=== PATIENT | male | born 1945 | race Caucasian/White ===

== ENCOUNTER 2018-02-05 20:19 | Inpatient (IN) | payer MEDICARE ==
[2018-02-05 21:54] LABS: CKMB 1.4 ng/mL (0-6.6); Troponin I 0.013 ng/mL (< 0.028)
--- NOTE | 2018-02-05 22:05 | RAD ---
PA AND LATERAL CHEST X-RAY: 02/05/2018 HISTORY: Hypokalemia. COMPARISON: 04/05/2013 FINDINGS: The cardiac silhouette and pulmonary vasculature are within normal limits. The lungs are clear. Vas cular calcifications are seen in the thoracic aorta. There has been no interval change from the prio r exam. IMPRESSION: No acute cardiopulmonary process. POS: [facility]
[2018-02-05 22:17] LABS: Anion Gap 11 mmol/L (10-20); BUN (Urea Nitrogen) 25 mg/dL (8.4-25.7); Calc. Creatinine Clearance 0 mL/min (70-130); Calcium 9.1 mg/dL (7.8-10.44); Carbon Dioxide 29 mmol/L (23-31); Chloride 97 mmol/L (98-107); Estimated GFR-MDRD 31; Sodium 134 mmol/L (136-145)
[2018-02-05 22:21] LABS: Glucose 656 mg/dL (80-115)
[2018-02-05 22:27] LABS: Actual Bicarbonate (HCO3a) 25.6 mEq/L (22-28); Analyzer IN Cardio ER; Base Excess (BEa) 2.1 mEq/L (-2.0 to +3.0); CO2 Tension 36.1 mmHg (35.0-45.0); Calcium, Ionized 1.14 mmol/L (1.12-1.30); Carboxyhemoglobin (COHb) 0.3 gm% (0.0-3.0); Hemoglobin (Hb) 11.6 g/dL (14.0-18.0); O2 Tension (PaO2) 69.1 mmHg (> 70.0); Potassium - ABG Lab 3.11 mmol/L (3.70-5.30); pH, Arterial 7.47 (7.35-7.45)
[2018-02-05 22:49] LABS: ALV-art Gradient 35.505 (0-20); Puncture Site RRA
[2018-02-05] MEDS ORDERED: Dextrose 5 %-0.45 % NaCl 1,000 ML IV PRN (22:51)
[2018-02-05] MEDS ORDERED: NS 0.9% w/ 20 MEQ KCL 1,000 ML IV PRN ×2 (22:51)
[2018-02-05] MEDS ORDERED: Sodium Chloride 0.9% 1,000 ML IV PRN ×4 (22:51)
[2018-02-05] MEDS ORDERED: D5 1/2 NS w/20 mEq KCL 1,000 ML IV PRN (22:51)
[2018-02-05] MEDS ORDERED: CCU Electrolyte Replacement 1 EACH IVPB ONE (22:51)
[2018-02-05] MEDS ORDERED: Ondansetron ODT 4 MG TAB PO PRN (22:51)
[2018-02-05] MEDS ORDERED: Ondansetron PF 4 MG/2 ML Vial IVP PRN (22:51)
[2018-02-05] MEDS ORDERED: Potassium Phosphate 15 MMOL in Sodium Chloride 0.9% 250 ML 250 ML IV PRN (23:13)
[2018-02-05] MEDS ORDERED: CCU ELECTROLYTE REPLACEMENT PROTOCOL FS PRN (23:13)
[2018-02-05] MEDS ORDERED: Potassium Phosphate 12 MMOL in Sodium Chloride 0.9% 250 ML 250 ML IV PRN (23:13)
[2018-02-05] MEDS ORDERED: Magnesium Oxide 400 MG TAB PO PRN ×2 (23:13)
[2018-02-05] MEDS ORDERED: Potassium Chloride 40 MEQ in Sodium Chloride 0.9% 250 ML 250 ML IVPB PRN (23:13)
[2018-02-05] MEDS ORDERED: Potassium Chloride 40 MEQ in Premix Bag 1 BAG IVPB PRN (23:13)
[2018-02-05] MEDS ORDERED: Potassium Chloride 20 MEQ TAB PO PRN (23:13)
[2018-02-05] MEDS ORDERED: Potassium Phosphate 9 MMOL in Sodium Chloride 0.9% 100 ML IVPB PRN (23:13)
[2018-02-05] MEDS ORDERED: Magnesium 2 GM/NS 0.9% 100 ML 2 GM in Premix Bag 1 BAG IVPB PRN (23:13)
[2018-02-05 23:40] LABS: Anion Gap 13 mmol/L (10-20); BUN (Urea Nitrogen) 25 mg/dL (8.4-25.7); Calc. Creatinine Clearance 0 mL/min (70-130); Carbon Dioxide 28 mmol/L (23-31); Chloride 98 mmol/L (98-107); Estimated GFR-MDRD 31; Magnesium 1.8 mg/dL (1.6-2.6); Phosphorus 2.7 mg/dL (2.3-4.7); Potassium 3.1 mmol/L (3.5-5.1); Sodium 136 mmol/L (136-145)
[2018-02-05 23:52] LABS: Glucose 600 mg/dL (80-115)
[2018-02-06 01:47] LABS: #Eosinphils 0.2 thou/uL (0.0-0.7); #Lymphocytes 1.2 thou/uL (1.20-3.40); #Monocytes 0.6 thou/uL (0.11-0.59); #Neutrophils 5.6 thou/uL (1.40-6.50); %Basophils 0.6 % (0.0-1.0); %Eosinophils 2.6 % (0.0-10.0); %Lymphocytes 15.3 % (21.0-51.0); %Monocytes 8.1 % (0.0-10.0); %Neutrophils 73.4 % (42.0-75.0); Mean Corpuscular HGB CONC 34.2 g/dL (32.0-36.0); Mean Corpuscular Hemoglobin 30.7 pg (27.0-31.0); Mean Corpuscular Volume 89.9 fL (78.0-98.0); Mean Platelet Volume 7.4 fL (7.4-10.4); Platelet Count 197 thou/uL (130-400); RBC Distribution Width 12.7 % (11.5-14.5); Red Blood Cell (RBC) Count 3.89 mill/uL (4.70-6.10); White Blood Cell (WBC) Count 7.7 thou/uL (4.8-10.8)
[2018-02-06 02:07] LABS: Anion Gap 14 mmol/L (10-20); BUN (Urea Nitrogen) 24 mg/dL (8.4-25.7); Calc. Creatinine Clearance 0 mL/min (70-130); Calcium 8.8 mg/dL (7.8-10.44); Carbon Dioxide 26 mmol/L (23-31); Chloride 101 mmol/L (98-107); Estimated GFR-MDRD 31; Potassium 3.1 mmol/L (3.5-5.1); Sodium 138 mmol/L (136-145)
[2018-02-06 02:17] LABS: Glucose 551 mg/dL (80-115)
[2018-02-06 04:23] LABS: Anion Gap 13 mmol/L (10-20); BUN (Urea Nitrogen) 23 mg/dL (8.4-25.7); Calc. Creatinine Clearance 0 mL/min (70-130); Calcium 8.8 mg/dL (7.8-10.44); Carbon Dioxide 28 mmol/L (23-31); Chloride 102 mmol/L (98-107); Estimated GFR-MDRD 33; Glucose 485 mg/dL (80-115); Sodium 140 mmol/L (136-145)
[2018-02-06 04:29] LABS: Potassium 2.9 mmol/L (3.5-5.1)
[2018-02-06 05:47] LABS: Anion Gap 14 mmol/L (10-20); BUN (Urea Nitrogen) 24 mg/dL (8.4-25.7); Calc. Creatinine Clearance 0 mL/min (70-130); Calcium 8.7 mg/dL (7.8-10.44); Carbon Dioxide 26 mmol/L (23-31); Chloride 104 mmol/L (98-107); Estimated GFR-MDRD 35; Glucose 324 mg/dL (80-115); Magnesium 1.8 mg/dL (1.6-2.6); Sodium 141 mmol/L (136-145)
[2018-02-06 05:55] LABS: Potassium 2.8 mmol/L (3.5-5.1)
[2018-02-06] MEDS ORDERED: Potassium Chloride 20 MEQ in Premix Bag 1 BAG IVPB SCH (06:30)
[2018-02-06] MEDS ORDERED: Magnesium 2 GM/50 ML 2 GM in Premix Bag 1 BAG IVPB SCH (07:15)
[2018-02-06] MEDS ORDERED: Nitroglycerin 2% Ointment 1 INCH/1 GM Packet ONE (08:09)
[2018-02-06] MEDS ORDERED: Dextrose 50% Abboject 50 ML SYRINGE SLOW IVP PRN (08:09)
[2018-02-06] MEDS ORDERED: Dextrose 5% in Water 1,000 ML IV PRN (08:09)
[2018-02-06] MEDS ORDERED: HumaLOG 300 UNITS/3 ML VIAL SC PRN (08:09)
[2018-02-06] MEDS ORDERED: Magnesium 2 GM/50 ML BAG (IN WATER) ONE (08:09)
[2018-02-06 08:12] LABS: Glucose 760 mg/dL (80-115)
[2018-02-06 08:13] LABS: Anion Gap 9 mmol/L (10-20); BUN (Urea Nitrogen) 19 mg/dL (8.4-25.7); Calc. Creatinine Clearance 0 mL/min (70-130); Calcium 7.4 mg/dL (7.8-10.44); Carbon Dioxide 26 mmol/L (23-31); Chloride 104 mmol/L (98-107); Estimated GFR-MDRD 40; Potassium 5.9 mmol/L (3.5-5.1); Sodium 133 mmol/L (136-145)
[2018-02-06 09:24] LABS: Hemoglobin A1c 12.9 % (4.0-6.0)
--- NOTE | 2018-02-06 09:56 | HP ---
CHIEF COMPLAINT: Generalized weakness. HISTORY OF PRESENT ILLNESS: This is a 72-year-old male with past medical history significant for hyp ertension presenting with generalized weakness. The patient went to [place] and upon further ev aluation, the patient was found to be hypokalemic with an elevated glucose. The patient was then tra nsferred to our emergency room for electrolyte abnormalities. In our ED the patient was found to hav e glucose about 680. The patient was then diagnosed with HHS. At this point, the patient denies any fever, chills, nausea, vomiting, dizziness, rashes. Patient states that he has some generalized wea kness, but does not have any shortness of breath, cough. REVIEW OF SYSTEMS: Positive for generalized weakness and chest discomfort. Otherwise, as documented in HPI. All other systems were reviewed and are negative. PAST MEDICAL HISTORY: Hypertension. PAST SURGICAL HISTORY: Prostate cancer status post hormone therapy, left middle finger surgery in th e past. PSYCHIATRIC HISTORY: He does not have any psychiatric history. SOCIAL HISTORY: The patient denies any alcohol use, denies any illicit drug use. Denies any smoking history. FAMILY HISTORY: Reviewed and noncontributory to this visit. ALLERGIES: The patient does not have any drug allergies. CURRENT MEDICATIONS: The patient is on amlodipine 10 mg, aspirin 81 mg, Lasix 20 mg, pravastatin 20 mg, lisinopril/hydrochlorothiazide 20/25 mg, Coreg 25 mg. PHYSICAL EXAMINATION: VITAL SIGNS: Blood pressure 150/87, pulse of 95, respiratory rate of 18, temperature of 98.4, O2 sat of 96. GENERAL: The patient is an obese male lying in bed, does not appear to be in any acute distress, abl e to speak in full sentences, alert and oriented x3. HEENT: Normocephalic, atraumatic. Pupils are equal, round, and reactive to light. Extraocular move ments are intact. No scleral icterus. NECK: Neck circumference is enlarged. Trachea is midline. Neck is supple. CARDIOVASCULAR: Positive S1 and S2, regular rate and rhythm. No murmurs, no gallops or rubs appreci ated. RESPIRATORY: Lungs clear to auscultation bilaterally. No wheezing, no rales, no rhonchi. ABDOMEN: Obese abdomen, soft, nontender, nondistended. Patient has a hernia periumbilicus. No olya toneal signs. EXTREMITIES: 5/5 upper extremity strength, 5/5 lower extremity strength. Good pulses bilaterally of the upper and lower extremities. NEUROLOGIC: Cranial nerves II-XII grossly intact. No neurologic deficits noted. PSYCHIATRIC: Alert, oriented x3, normal affect. ED COURSE: Potassium chloride, normal saline running at 125 mL per hour, potassium chloride in lore l saline 40 mEq IV piggyback, Novolin R 0.1 units per kg per hour started, potassium chloride and D5 half normal saline started, the patient was given a half an inch of nitro transdermal. LABORATORY DATA: WBC 7.7, hemoglobin is 12.0, hematocrit is 35.0, platelet count 197. ABG; pH 7.47 , pCO2 is 36.1, pO2 is 69.1. Sodium 136, potassium is 3.1, chloride is 98, carbon dioxide 28, anion gap is 13, BUN is 25, creatinine is 2.11, GFR is 31, glucose of 600. Serum osmolality is 323. Phosp horus is 2.7, magnesium is 1.8. Troponin is 0.013. ASSESSMENT AND PLAN: 1. This is a 72-year-old male being admitted for hyperosmolar hyperglycemic syndrome. At this point , the patient has been started on insulin protocol. We are going to do BMP every 4 hours. We will r eplete the patient's potassium, magnesium and all electrolyte imbalances. We will continue IV fluids with 20 mEq of sodium in the fluid. We will continue to monitor the patient very closely. 2. Electrolyte abnormality. Currently, we are repleting all electrolytes. 3. Acute on chronic kidney disease. At this point, the patient's creatinine is 2.11. We have patie nt on IV hydration. We will monitor the patient's creatinine. 4. Hypertension, uncontrolled. Patient's blood pressure is currently elevated. We will start patie nt on blood pressure medications as needed. If the patient's blood pressure goes above 200, we would do nitro paste and we will give patient Hydralazine 10 mg IV q.4 hours if systolic blood pressure is greater than 180. We will start patient on his home medications. 5. Newly diagnosed diabetes mellitus type 2. We have ordered hemoglobin A1c. We will follow up on the results and will start patient on medications accordingly. 6. Deep venous thrombosis and gastrointestinal prophylaxis.
[2018-02-06 10:02] LABS: Anion Gap 11 mmol/L (10-20); BUN (Urea Nitrogen) 21 mg/dL (8.4-25.7); Calc. Creatinine Clearance 0 mL/min (70-130); Calcium 8.9 mg/dL (7.8-10.44); Carbon Dioxide 27 mmol/L (23-31); Chloride 107 mmol/L (98-107); Estimated GFR-MDRD 43; Glucose 119 mg/dL (80-115); Potassium 3.2 mmol/L (3.5-5.1); Sodium 142 mmol/L (136-145)
[2018-02-06] MEDS: Famotidine 20 MG TAB PO SCH ×2 (14:55→21:14)
--- NOTE | 2018-02-06 16:52 | PDOC.EVN ---
Event Note - Event Note Event Note: Chart reviewed. Pt seen. Reports feeling better. Will follow.
[2018-02-06] MEDS: NS 0.9% w/ 20 MEQ KCL 1,000 ML IV SCH ×2 (16:53→16:54)
[2018-02-06] MEDS: Nitroglycerin 2% Ointment 1 INCH/1 GM Packet TOP SCH (16:55)
[2018-02-06] MEDS: Famotidine/PF 20 mg/2ml Vial SLOW IVP SCH ×2 (16:55→21:15)
[2018-02-06 17:03] VITALS: BMI 38.3
[2018-02-06] MEDS: HumaLOG 300 UNITS/3 ML VIAL SC PRN (18:34)
[2018-02-06] MEDS: Insulin Glargine 5 UNITS in Pre-Filled Syringe 1 EACH SC SCH (21:11)
[2018-02-06] MEDS: hydrALAZINE 20 MG/ML VIAL SLOW IVP PRN (21:15)
[2018-02-07] MEDS: NS 0.9% w/ 20 MEQ KCL 1,000 ML IV SCH ×4 (00:37→23:28)
[2018-02-07] MEDS: Nitroglycerin 2% Ointment 1 INCH/1 GM Packet TOP SCH ×4 (00:38→22:07)
[2018-02-07] MEDS: hydrALAZINE 20 MG/ML VIAL SLOW IVP PRN ×2 (02:27→02:33)
[2018-02-07 05:59] LABS: #Basophils 0.1 thou/uL (0.0-0.2); #Eosinphils 0.2 thou/uL (0.0-0.7); #Lymphocytes 1.3 thou/uL (1.20-3.40); #Monocytes 0.4 thou/uL (0.11-0.59); #Neutrophils 3.3 thou/uL (1.40-6.50); %Basophils 1.2 % (0.0-1.0); %Eosinophils 3.1 % (0.0-10.0); %Lymphocytes 24.8 % (21.0-51.0); %Monocytes 7.4 % (0.0-10.0); %Neutrophils 63.5 % (42.0-75.0); Hemoglobin 10.6 g/dL (14.0-18.0); Mean Corpuscular HGB CONC 34.1 g/dL (32.0-36.0); Mean Corpuscular Hemoglobin 30.7 pg (27.0-31.0); Mean Corpuscular Volume 89.8 fL (78.0-98.0); Mean Platelet Volume 7.4 fL (7.4-10.4); Platelet Count 182 thou/uL (130-400); Red Blood Cell (RBC) Count 3.46 mill/uL (4.70-6.10); White Blood Cell (WBC) Count 5.2 thou/uL (4.8-10.8)
[2018-02-07 06:19] LABS: Anion Gap 10 mmol/L (10-20); BUN (Urea Nitrogen) 19 mg/dL (8.4-25.7); Calc. Creatinine Clearance 93 mL/min (70-130); Calcium 8.2 mg/dL (7.8-10.44); Carbon Dioxide 26 mmol/L (23-31); Chloride 105 mmol/L (98-107); Estimated GFR-MDRD 48; Glucose 308 mg/dL (80-115); Potassium 3.1 mmol/L (3.5-5.1); Sodium 138 mmol/L (136-145)
[2018-02-07] MEDS: HumaLOG 300 UNITS/3 ML VIAL SC PRN (06:30)
--- NOTE | 2018-02-07 09:59 | PDOC.PULCN ---
<ShayDylanEileen - Last Filed: 02/07/18 11:59> Pulmonology Consult: HPI - Date of Consult Date: 02/07/18 Time: 10:00 - Consult Details Reason for Consult: IMCU admission, [facility] - History of Present Illness HPI: LYNNE GELLER is a 72 year-old M who presents with decreased energy, polyuria , and urinary incontinence. He was found to have new onset type 2 diabetes and was initially admitted for [facility]. He endorsed initial sx of extreme fatigue and recent episodes of incontinence but feels better overall this am. He endorses perianal pain from a pilonidal cyst that is actively draining, but states he has had this for years. Pulmonology Consult: ROS - Review of Systems Constitutional: negative: fever, chills Cardiovascular: negative: chest pain, palpitations Respiratory: negative: short of breath, tachypnea Pulmonology Consult: [facility] Source: patient Past Medical History: Hypertension Pilonidal cyst New onset (this admission) of Type 2 Diabetes - Family History Pertinent family history: none - Social History Smoking Status: Never smoker Alcohol Use: none Drug Use History: none Pulmonology Consult: Meds - Medications MAR Reviewed: Yes Medications: Current Medications Amlodipine Besylate (Norvasc) 10 mg PO DAILY [facility] Aspirin (Ecotrin) 81 mg PO DAILY [facility] Carvedilol (Coreg) 25 mg PO BID [facility] Cefdinir (Omnicef) 300 mg PO BID SAMEER Dextrose/Water (Dextrose 50%) 25 gm SLOW IVP PRN PRN PRN Reason: Hypoglycemia Doxycycline Hyclate (Vibramycin) 100 mg PO BID SAMEER Famotidine (Pepcid) 20 mg SLOW IVP Q12HR [facility]ER Last Admin: 02/06/18 21:15 Dose: Not Given Famotidine (Pepcid) 20 mg PO BID SAMEER Last Admin: 02/06/18 21:14 Dose: 20 mg Fish Oil (Fish Oil) 1,000 mg PO DAILY SAMEER Furosemide (Lasix) 20 mg PO DAILY [facility]ER Glucagon (Glucagon) 1 mg IM PRN PRN PRN Reason: Hypoglycemia Hydralazine HCl (Apresoline) 10 mg SLOW IVP Q4H PRN PRN Reason: Hypertension Last Admin: 02/07/18 02:27 Dose: 10 mg Potassium Chloride/Sodium Chloride (Ns 0.9% W/ 20 Meq Kcl) 1,000 mls @ 125 mls/ hr IV .Q8H SAMEER Last Admin: 02/07/18 00:37 Dose: 1,000 mls Dextrose/Sodium Chloride (D5 1/2 Ns) 1,000 mls @ 250 mls/hr IV .Q4H PRN; Protocol PRN Reason: Step 4 of DKA Protocol Potassium Chloride/Dextrose/Sod Cl (D5 1/2 Ns W/20 Meq Kcl) 1,000 mls @ 250 mls /hr IV .Q4H PRN; Protocol PRN Reason: Step 4 of DKA Protocol Sodium Chloride (Normal Saline 0.9%) 1,000 mls @ 500 mls/hr IV .Q2H PRN; Protocol PRN Reason: Step 1 of DKA Protocol Sodium Chloride (Normal Saline 0.9%) 1,000 mls @ 1,000 mls/hr IV .Q1H PRN; Protocol PRN Reason: Step 1 of DKA Protocol Sodium Chloride (Normal Saline 0.9%) 1,000 mls @ 250 mls/hr IV .Q4H PRN; Protocol PRN Reason: SEE STEP 3 OF DKA PROTOCOL Sodium Chloride (Normal Saline 0.9%) 1,000 mls @ 500 mls/hr IV .Q2H PRN; Protocol PRN Reason: Step 2 of DKA Protocol Potassium Chloride/Sodium Chloride (Ns 0.9% W/ 20 Meq Kcl) 1,000 mls @ 500 mls/ hr IV .Q2H PRN; Protocol PRN Reason: Step 2 of DKA Protocol Potassium Chloride/Sodium Chloride (Ns 0.9% W/ 20 Meq Kcl) 1,000 mls @ 250 mls/ hr IV .Q4H PRN; Protocol PRN Reason: SEE STEP 3 OF DKA PROTOCOL Potassium Chloride 40 meq/ (Sodium Chloride) 270 mls @ 135 mls/hr IVPB ASDIR PRN PRN Reason: FOR SERUM K+ 2.5 - 3.5 Potassium Chloride 40 meq/ (Device) 100 mls @ 50 mls/hr IVPB ASDIR PRN PRN Reason: FOR SERUM K+ 2.5 - 3.5 Magnesium Sulfate 1 gm/ Sodium (Chloride) 102 mls @ 102 mls/hr IV PRN PRN PRN Reason: MAG LEVEL 1.4 - 2.0 Magnesium Sulfate 2 gm/ Device 100 mls @ 100 mls/hr IVPB ASDIR PRN PRN Reason: MAGNESIUM < 1.4 Potassium Phosphate 9 mmol/ (Sodium Chloride) 103 mls @ 25.75 mls/hr IVPB ASDIR PRN PRN Reason: Phosphate 1.0-1.8 Potassium Phosphate 12 mmol/ (Sodium Chloride) 254 mls @ 63.5 mls/hr IV ASDIR PRN PRN Reason: Serum phosphate 0.5-0.9 Potassium Phosphate 15 mmol/ (Sodium Chloride) 255 mls @ 63.75 mls/hr IV ASDIR PRN PRN Reason: Serum Phos < 0.5 Insulin Glargine 5 units/ (Miscellaneous Medication) 0.05 mls @ 0 mls/hr SC HS [facility] Last Admin: 02/06/18 21:11 Dose: 0.05 mls Dextrose/Water (D5w) 1,000 mls @ 0 mls/hr IV .Q0M PRN PRN Reason: Hypoglycemia Insulin Human Lispro (Humalog) 0 units SC .MILD SLIDING SCALE PRN PRN Reason: Mild Correctional Scale Last Admin: 02/07/18 06:30 Dose: 5 unit Insulin Human Lispro (Humalog) 0 units SC .BEDTIME SLIDING SC PRN PRN Reason: Bedtime Correctional Scale Last Admin: 02/06/18 21:16 Dose: 5 unit Insulin Human Lispro (Humalog) 10 units SC [facility]ID[facility] Magnesium Oxide (Magnesium Oxide) 400 mg PO BIDPRN PRN PRN Reason: FOR SERUM MAG 1.4 - 2.0 Magnesium Oxide (Magnesium Oxide) 800 mg PO PRN PRN PRN Reason: FOR SERUM MAG < 1.4 Miscellaneous Medication (Phos-Nak) 1 pkt PO TIDPRN PRN PRN Reason: FOR PHOS LEVEL 1.0 - 1.8 Miscellaneous Medication (Phos-Nak) 2 pkt PO TIDPRN PRN PRN Reason: FOR PHOS LEVEL 0.5 - 1.0 Nitroglycerin (Nitro-Bid 2% Ointment) 0.5 inch TOP Q8HR [facility] Last Admin: 02/07/18 05:52 Dose: Not Given Ccu Electrolyte (Replacement Protocol) 0 each FS PRN PRN PRN Reason: FOR ELECTROLYTE REPLACEMENT Ondansetron HCl (Zofran Odt) 4 mg PO Q6H PRN PRN Reason: Nausea/Vomiting Ondansetron HCl (Zofran) 4 mg IVP Q6H PRN PRN Reason: Nausea/Vomiting Potassium Chloride (K-Dur) 40 meq PO ASDIR PRN PRN Reason: FOR SERUM K+ 2.5 - 3.5 Potassium Chloride (Klor-Con) 40 meq PER TUBE ASDIR PRN PRN Reason: FOR SERUM K+ 2.5-3.5 Simvastatin (Zocor) 10 mg PO HS SAMEER Sodium Chloride (Flush - Normal Saline) 10 ml IVF Q12HR SAMEER Last Admin: 02/06/18 21:15 Dose: 10 ml Vitamin E (Vitamin E) 400 units PO DAILY SAMEER - Allergies Allergies/Adverse Reactions: Allergies Allergy/AdvReac Type Severity Reaction Status Date / Time No Known Allergies Allergy Verified 02/06/18 17:04 Pulmonology Consult: PE - Physical Exam Constitutional: NAD HEENT: PERRLA, moist MMs Cardiovascular: RRR, no significant murmur Respiratory: clear to auscultation bilaterally Gastrointestinal: soft, non-tender, no distention Musculoskeletal: no edema Neurological: non-focal Psychiatric: normal affect, A&O x 3 Skin: no rash Deviation from normal: pilonidal cyst perianal with surrounding erythema Pulmonology Consult: Results - Labs Result Diagrams: 02/07/18 05:00 02/07/18 05:00 - ABG Interpretation ABG Results: ABG pH 7.47 (7.35-7.45) H 02/05/18 22:24 ABG pCO2 36.1 mmHg (35.0-45.0) 02/05/18 22:24 ABG O2 Sat Calc/Ha 94.2 % (94.0-98.0) 02/05/18 22:24 ABG Base Excess 2.1 mEq/L (-2.0 to +3.0) 02/05/18 22:24 Pulmonology Consult: A/P - Problem (1) Type 2 diabetes mellitus Current Visit: Yes Status: Acute (2) Hypertension Current Visit: Yes Code(s): I10 - ESSENTIAL (PRIMARY) HYPERTENSION Status: Acute (3) Pilonidal cyst Current Visit: Yes Code(s): L05.91 - PILONIDAL CYST WITHOUT ABSCESS Status: Acute (4) Hyperglycemia due to type 2 diabetes mellitus Current Visit: Yes Code(s): E11.65 - TYPE 2 DIABETES MELLITUS WITH HYPERGLYCEMIA Status: Acute (5) Hypokalemia Current Visit: Yes Code(s): E87.6 - HYPOKALEMIA Status: Acute - Time Time: 50% of the time was spent in coordination of care (as documented) at patient's floor/unit and/or counseling patient. - Plan Plan: 72 yo gentleman with pmhx of HTN presents with polyuria and fatigue admitted for hyperglycemia and hypokalemia. 1.)Hypergylcemia 2/2 new onset type 2 diabetes- -Pt did not meet criteria for DKA or HHS -Hba1c 12.9%; he will likely need insulin for optimal glycemic control -Discussed weight loss strategy -He can be transitioned out of the IMCU to the floor today -ordered a UA to rule out UTI as pt complained of polyuria, overflow and urge incontinence 2.)Type 2 Diabetes- -See above 3.)Hypokalemia- -Will replace with 40mg PO KCL and recheck in 4 hours; he will likely need additional replacement 4.Pilonidal cyst -Orderd perianal US for abscess formation eval; empirically started doxy and omnicef 5.)Hypertension- -Uncontrolled; consider adding Lisinopril once JACOB improves 6.)Urge vs overflow incontinence -Ordered UA to rule out UTI <Aaron Scanlon - Last Filed: 02/09/18 14:08> Pulmonology Consult: HPI - History of Present Illness HPI: YIMILYNNE is a 72 year-old M Pulmonology Consult: Meds - Medications Medications: Current Medications Acetaminophen (Tylenol) 500 mg PO Q6H PRN PRN Reason: Mild Pain (1-3) Amlodipine Besylate (Norvasc) 10 mg PO DAILY [facility] Last Admin: 02/09/18 09:06 Dose: 10 mg Aspirin (Ecotrin) 81 mg PO DAILY [facility] Last Admin: 02/09/18 09:05 Dose: 81 mg Bisacodyl (Dulcolax) 10 mg PO DAILYPRN PRN PRN Reason: Constipation Carvedilol (Coreg) 25 mg PO BID [facility] Last Admin: 02/09/18 09:03 Dose: 25 mg Cefdinir (Omnicef) 300 mg PO BID [facility] Last Admin: 02/09/18 09:06 Dose: 300 mg Dextrose/Water (Dextrose 50%) 25 gm SLOW IVP PRN PRN PRN Reason: Hypoglycemia Doxycycline Hyclate (Vibramycin) 100 mg PO BID [facility] Last Admin: 02/09/18 09:03 Dose: 100 mg Fish Oil (Fish Oil) 1,000 mg PO DAILY [facility] Last Admin: 02/09/18 09:06 Dose: 1,000 mg Furosemide (Lasix) 20 mg PO DAILY [facility] Last Admin: 02/09/18 09:07 Dose: 20 mg Glucagon (Glucagon) 1 mg IM PRN PRN PRN Reason: Hypoglycemia Guaifenesin (Robitussin Sf) 200 mg PO Q4H PRN PRN Reason: Cough Hydralazine HCl (Apresoline) 10 mg SLOW IVP Q4H PRN PRN Reason: Hypertension Last Admin: 02/07/18 02:27 Dose: 10 mg Dextrose/Water (D5w) 1,000 mls @ 0 mls/hr IV .Q0M PRN PRN Reason: Hypoglycemia Insulin Glargine 10 units/ (Miscellaneous Medication) 0.1 mls @ 0 mls/hr SC HS [facility] Last Admin: 02/08/18 20:34 Dose: 0.1 mls Insulin Glargine 10 units/ (Miscellaneous Medication) 0.1 mls @ 0 mls/hr [facility] Last Admin: 02/09/18 09:02 Dose: 0.1 mls Insulin Human Lispro (Humalog) 0 units SC .MILD SLIDING SCALE PRN PRN Reason: Mild Correctional Scale Last Admin: 02/08/18 06:29 Dose: 4 unit Insulin Human Lispro (Humalog) 0 units SC .BEDTIME SLIDING SC PRN PRN Reason: Bedtime Correctional Scale Last Admin: 02/06/18 21:16 Dose: 5 unit Insulin Human Lispro (Humalog) 10 units SC TID-[facility] Last Admin: 02/09/18 11:28 Dose: 10 unit Lisinopril (Zestril) 20 mg PO DAILY [facility] Last Admin: 02/09/18 09:04 Dose: 20 mg Loperamide HCl (Imodium) 2 mg PO PRN PRN PRN Reason: Diarrhea/Loose Stools Loratadine (Claritin) 10 mg PO DAILYPRN PRN PRN Reason: Sinus Symptoms Magnesium Oxide (Magnesium Oxide) 400 mg PO BID [facility] Last Admin: 02/09/18 09:06 Dose: 400 mg Mineral Oil/White Petrolatum (Eucerin Cream) 0 gm TOP BIDPRN PRN PRN Reason: Dry Skin Nitroglycerin (Nitro-Bid 2% Ointment) 0.5 inch TOP Q8HR [facility] Last Admin: 02/09/18 13:42 Dose: Not Given Ondansetron HCl (Zofran Odt) 4 mg PO Q6H PRN PRN Reason: Nausea/Vomiting Ondansetron HCl (Zofran) 4 mg IVP Q6H PRN PRN Reason: Nausea/Vomiting Senna/Docusate Sodium (Senokot S) 2 tab PO BIDPRN PRN PRN Reason: Constipation Simvastatin (Zocor) 10 mg PO HS [facility] Last Admin: 02/08/18 20:33 Dose: 10 mg Sodium Chloride (Flush - Normal Saline) 10 ml IVF Q12HR [facility] Last Admin: 02/09/18 09:10 Dose: Not Given Sodium Chloride ([place] Nasal [place] 0.65%) 0 ml EA NARE QIDPRN PRN PRN Reason: Nasal Congestion Vitamin E (Vitamin E) 400 units PO DAILY [facility] Last Admin: 02/09/18 09:04 Dose: 400 units Pulmonology Consult: Results - Labs Result Diagrams: 02/07/18 05:00 02/09/18 04:13 - ABG Interpretation ABG Results: ABG pH 7.47 (7.35-7.45) H 02/05/18 22:24 ABG pCO2 36.1 mmHg (35.0-45.0) 02/05/18 22:24 ABG O2 Sat Calc/Ha 94.2 % (94.0-98.0) 02/05/18 22:24 ABG Base Excess 2.1 mEq/L (-2.0 to +3.0) 02/05/18 22:24 Pulmonology Consult: A/P - Time Time: 50% of the time was spent in coordination of care (as documented) at patient's floor/unit and/or counseling patient. Time with Patient: greater than 70 minutes Attending Addendum - Attending Addendum Date/Time: 02/09/18 [id number] I personally evaluated the patient and discussed the management with Dr. Day. I agree with the History, Examination, Assessment and Plan documented above with any addition or exceptions noted below. Obstructive sleep apnea, suspected. 70 minutes have been devoted to this patient in various activities. I personally reviewed all imaging studies and laboratory data noted within this document. For fifty percent of this time, I was interacting with the patient at the bedside or coordinating care with the care team. For the remainder of the time I was immediately available to the patient in the hospital unit.
[2018-02-07] MEDS ORDERED: Cefdinir 300 MG CAP PO SCH ×2 (10:00→10:15)
[2018-02-07] MEDS ORDERED: Doxycycline 100 MG CAP PO SCH ×2 (10:15→21:00)
[2018-02-07] MEDS ORDERED: Carvedilol 25 MG TAB PO SCH (10:15)
[2018-02-07] MEDS ORDERED: Furosemide 20 MG TAB PO SCH (10:15)
[2018-02-07] MEDS ORDERED: Aspirin 81 mg Enteric Coated Tablet PO SCH (10:15)
[2018-02-07] MEDS ORDERED: Amlodipine 10 MG TAB PO SCH (10:15)
[2018-02-07] MEDS: Vitami E (Dl,Tocopheryl Acet) 400 UNITS CAP PO SCH (10:22)
[2018-02-07] MEDS: Famotidine 20 MG TAB PO SCH ×2 (10:23→20:43)
[2018-02-07] MEDS: Fish Oil 1,000 MG CAP PO SCH (10:24)
[2018-02-07] MEDS: Famotidine/PF 20 mg/2ml Vial SLOW IVP SCH ×2 (10:25→20:52)
[2018-02-07] MEDS: HumaLOG 300 UNITS/3 ML VIAL SC SCH ×3 (10:26→17:24)
[2018-02-07 12:16] LABS: Bilirubin Negative (Negative); Blood, Urine Negative (Negative); Clarity CLEAR (Clear); Glucose, Urine (Dipstick) 500 mg/dL (Negative); Leukocyte Negative (Negative); Nitrite Negative (Negative); Protein, Urine (Dipstick) Negative (Neg-Trace); Specific Gravity, Urine 1.012 (1.002-1.036); Urobilinogen 0.2 mg/dL (0.2-1.0)
--- NOTE | 2018-02-07 12:49 | ULT ---
SOFT TISSUE ULTRASOUND OF THE PERIANAL REGION: INDICATION: History of pilonidal cyst, concern for abscess. FINDINGS: Submitted soft tissue ultrasound images include ibarra scale and color Doppler series. The images demo nstrate 2.6 x 1.5 cm soft tissue lesion seen within the area of interest with increased hyperemia jake picious for phlegmon. No definite drainable fluid collection is evident. IMPRESSION: Area of phlegmon seen within the region of the perianal pilonidal cyst. Surgical consultation may be helpful for this patient. POS: [facility]
[2018-02-07] MEDS ORDERED: Potassium Chloride 20 MEQ TAB PO SCH (13:00)
--- NOTE | 2018-02-07 14:41 | CON ---
DATE OF CONSULTATION: 02/07/2018 I have been consulted for pilonidal cyst. CHIEF COMPLAINT: History of active inflammation of his known pilonidal cyst. HISTORY OF PRESENT ILLNESS: This is a 72-year-old male, who presents with a history of generalized w eakness, admitted to the hospital and the Hospitalist Service for further workup. Found to have sign ificantly elevated blood sugars and newly diagnosed diabetes mellitus. He has a history of chronic p ilonidal cyst that is inflamed off and on. He has noticed more pain recently. No significant draina ge or bleeding. He has never had surgery in the area before, because he heard that it "comes back." The pain is described as 6/10, does not radiate, hurts more to lay on it. PAST MEDICAL HISTORY: Includes hypertension; diabetes mellitus, new diagnosis. PAST SURGICAL HISTORY: Finger surgery. SOCIAL HISTORY: No smoking, alcohol, or other drugs. FAMILY HISTORY: Noncontributory to GI malignancy. ALLERGIES: No known drug allergies. MEDICINES: Amlodipine, aspirin, Lasix, pravastatin, lisinopril, hydrochlorothiazide, prior to hospit alization. REVIEW OF SYSTEMS: Ten-system review of systems otherwise negative unless described above. PHYSICAL EXAMINATION: VITAL SIGNS: Blood pressure is 158/72, pulse 72, respirations 16. He is afebrile. HEENT: Sclerae are anicteric. Oropharynx clear. NECK: No lymphadenopathy. CHEST: Clear. HEART: Regular rate and rhythm. ABDOMEN: Soft and nontender. EXTREMITIES: Examination of his gluteal cleft reveals to be obvious pilonidal sinus tracts. There i s an area of chronic open wound, but no drainable abscess. EXTREMITIES: No ischemia or edema to extremities. LABORATORY DATA: White cell count is 5, hemoglobin is 10. Creatinine is 1.46. ASSESSMENT: Inflamed pilonidal cyst in the setting of new diagnosis of type 2 diabetes. PLAN: Recommend oral antibiotics for 2 weeks and follow up in my office for further discussion on po tential definitive excision.
--- NOTE | 2018-02-07 16:34 | PDOC.PN ---
- Subjective Encounter Start Date: 02/07/18 Encounter Start Time: 07:20 Pt seen for followup re: hyperglycemic hyperosmolar state. Feels better. Denies chest pain, shortness of breath, fevers or chills. - Objective Resuscitation Status: Resuscitation Status FULL:Full Resuscitation MAR Reviewed: Yes Vital Signs & Weight: Vital Signs (12 hours) Temp Pulse Resp BP BP Pulse Ox 02/07/18 11:57 98.4 F 72 16 158/72 H 97 02/07/18 10:24 74 160/80 H 02/07/18 08:00 97 Weight Weight 307 lb I&O: 02/06/18 02/07/18 02/08/18 06:59 06:59 06:59 Intake Total 1940 Output Total 1100 Balance 840 Result Diagrams: 02/07/18 05:00 02/07/18 05:00 Additional Labs: Accuchecks 02/07/18 02/07/18 02/06/18 11:50 06:10 20:03 POC Glucose 343 H 339 H 349 H 02/06/18 18:00 POC Glucose 305 H EKG Reviewed by me: Yes (Tele: NSR) Phys Exam - Physical Examination Constitutional: NAD HEENT: moist MMs Neck: supple Respiratory: clear to auscultation bilateral Cardiovascular: RRR Gastrointestinal: soft Neurological: moves all 4 limbs Psychiatric: normal affect Dx/Plan (1) Hyperglycemic hyperosmolar nonketotic coma Code(s): E11.01 - TYPE 2 DIABETES MELLITUS WITH HYPEROSMOLARITY WITH COMA; E11.65 - TYPE 2 DIABETES MELLITUS WITH HYPERGLYCEMIA Status: Acute Comment: Improved, now on subcutaneous insulin. (2) Hypertension Code(s): I10 - ESSENTIAL (PRIMARY) HYPERTENSION Status: Chronic Comment: resumed home medications except for lisinopril/HCTZ (JACOB) (3) Hypokalemia Code(s): E87.6 - HYPOKALEMIA Status: Chronic Comment: replace potassium (4) Pilonidal cyst Code(s): L05.91 - PILONIDAL CYST WITHOUT ABSCESS Status: Chronic Comment: seen by surgery service, started on antibiotics - Plan continue antibiotics, out of bed/ambulate * . Pt will need paper scripts at the time of discharge, per case management. Review of Systems - Review of Systems Respiratory: negative: Cough, Shortness of Breath, SOB with Excertion, Pleuritic Pain, Wheezing Cardiovascular: negative: chest pain, palpitations, orthopnea, paroxysmal nocturnal dyspnea, edema, light headedness - Medications/Allergies Allergies/Adverse Reactions: Allergies Allergy/AdvReac Type Severity Reaction Status Date / Time No Known Allergies Allergy Verified 02/06/18 17:04 Medications: Current Medications Amlodipine Besylate (Norvasc) 10 mg PO DAILY [facility] Aspirin (Ecotrin) 81 mg PO DAILY [facility] Carvedilol (Coreg) 25 mg PO BID [facility] Cefdinir (Omnicef) 300 mg PO BID [facility] Dextrose/Water (Dextrose 50%) 25 gm SLOW IVP PRN PRN PRN Reason: Hypoglycemia Doxycycline Hyclate (Vibramycin) 100 mg PO BID [facility] Famotidine (Pepcid) 20 mg SLOW IVP Q12HR [facility] Last Admin: 02/07/18 10:25 Dose: Not Given Famotidine (Pepcid) 20 mg PO BID [facility] Last Admin: 02/07/18 10:23 Dose: 20 mg Fish Oil (Fish Oil) 1,000 mg PO DAILY [facility] Last Admin: 02/07/18 10:24 Dose: 1,000 mg Furosemide (Lasix) 20 mg PO DAILY [facility] Glucagon (Glucagon) 1 mg IM PRN PRN PRN Reason: Hypoglycemia Hydralazine HCl (Apresoline) 10 mg SLOW IVP Q4H PRN PRN Reason: Hypertension Last Admin: 02/07/18 02:27 Dose: 10 mg Potassium Chloride/Sodium Chloride (Ns 0.9% W/ 20 Meq Kcl) 1,000 mls @ 125 mls/ hr IV .Q8H [facility] Last Admin: 02/07/18 11:32 Dose: 1,000 mls Dextrose/Sodium Chloride (D5 1/2 Ns) 1,000 mls @ 250 mls/hr IV .Q4H PRN; Protocol PRN Reason: Step 4 of DKA Protocol Potassium Chloride/Dextrose/Sod Cl (D5 1/2 Ns W/20 Meq Kcl) 1,000 mls @ 250 mls /hr IV .Q4H PRN; Protocol PRN Reason: Step 4 of DKA Protocol Last Admin: 02/07/18 10:22 Dose: 1,000 mls Sodium Chloride (Normal Saline 0.9%) 1,000 mls @ 500 mls/hr IV .Q2H PRN; Protocol PRN Reason: Step 1 of DKA Protocol Sodium Chloride (Normal Saline 0.9%) 1,000 mls @ 1,000 mls/hr IV .Q1H PRN; Protocol PRN Reason: Step 1 of DKA Protocol Sodium Chloride (Normal Saline 0.9%) 1,000 mls @ 250 mls/hr IV .Q4H PRN; Protocol PRN Reason: SEE STEP 3 OF DKA PROTOCOL Sodium Chloride (Normal Saline 0.9%) 1,000 mls @ 500 mls/hr IV .Q2H PRN; Protocol PRN Reason: Step 2 of DKA Protocol Potassium Chloride/Sodium Chloride (Ns 0.9% W/ 20 Meq Kcl) 1,000 mls @ 500 mls/ hr IV .Q2H PRN; Protocol PRN Reason: Step 2 of DKA Protocol Potassium Chloride/Sodium Chloride (Ns 0.9% W/ 20 Meq Kcl) 1,000 mls @ 250 mls/ hr IV .Q4H PRN; Protocol PRN Reason: SEE STEP 3 OF DKA PROTOCOL Potassium Chloride 40 meq/ (Sodium Chloride) 270 mls @ 135 mls/hr IVPB ASDIR PRN PRN Reason: FOR SERUM K+ 2.5 - 3.5 Potassium Chloride 40 meq/ (Device) 100 mls @ 50 mls/hr IVPB ASDIR PRN PRN Reason: FOR SERUM K+ 2.5 - 3.5 Magnesium Sulfate 1 gm/ Sodium (Chloride) 102 mls @ 102 mls/hr IV PRN PRN PRN Reason: MAG LEVEL 1.4 - 2.0 Magnesium Sulfate 2 gm/ Device 100 mls @ 100 mls/hr IVPB ASDIR PRN PRN Reason: MAGNESIUM < 1.4 Potassium Phosphate 9 mmol/ (Sodium Chloride) 103 mls @ 25.75 mls/hr IVPB ASDIR PRN PRN Reason: Phosphate 1.0-1.8 Potassium Phosphate 12 mmol/ (Sodium Chloride) 254 mls @ 63.5 mls/hr IV ASDIR PRN PRN Reason: Serum phosphate 0.5-0.9 Potassium Phosphate 15 mmol/ (Sodium Chloride) 255 mls @ 63.75 mls/hr IV ASDIR PRN PRN Reason: Serum Phos < 0.5 Insulin Glargine 5 units/ (Miscellaneous Medication) 0.05 mls @ 0 mls/hr SC [facility] Last Admin: 02/06/18 21:11 Dose: 0.05 mls Dextrose/Water (D5w) 1,000 mls @ 0 mls/hr IV .Q0M PRN PRN Reason: Hypoglycemia Insulin Human Lispro (Humalog) 0 units SC .MILD SLIDING SCALE PRN PRN Reason: Mild Correctional Scale Last Admin: 02/07/18 06:30 Dose: 5 unit Insulin Human Lispro (Humalog) 0 units SC .BEDTIME SLIDING SC PRN PRN Reason: Bedtime Correctional Scale Last Admin: 02/06/18 21:16 Dose: 5 unit Insulin Human Lispro (Humalog) 10 units SC TID-WM [facility] Last Admin: 02/07/18 11:50 Dose: 10 unit Magnesium Oxide (Magnesium Oxide) 400 mg PO BIDPRN PRN PRN Reason: FOR SERUM MAG 1.4 - 2.0 Magnesium Oxide (Magnesium Oxide) 800 mg PO PRN PRN PRN Reason: FOR SERUM MAG < 1.4 Miscellaneous Medication (Phos-Nak) 1 pkt PO TIDPRN PRN PRN Reason: FOR PHOS LEVEL 1.0 - 1.8 Miscellaneous Medication (Phos-Nak) 2 pkt PO TIDPRN PRN PRN Reason: FOR PHOS LEVEL 0.5 - 1.0 Nitroglycerin (Nitro-Bid 2% Ointment) 0.5 inch TOP Q8HR [facility] Last Admin: 02/07/18 14:26 Dose: 0.5 inch Ccu Electrolyte (Replacement Protocol) 0 each FS PRN PRN PRN Reason: FOR ELECTROLYTE REPLACEMENT Ondansetron HCl (Zofran Odt) 4 mg PO Q6H PRN PRN Reason: Nausea/Vomiting Ondansetron HCl (Zofran) 4 mg IVP Q6H PRN PRN Reason: Nausea/Vomiting Potassium Chloride (K-Dur) 40 meq PO ASDIR PRN PRN Reason: FOR SERUM K+ 2.5 - 3.5 Potassium Chloride (Klor-Con) 40 meq PER TUBE ASDIR PRN PRN Reason: FOR SERUM K+ 2.5-3.5 Simvastatin (Zocor) 10 mg PO [facility] Sodium Chloride (Flush - Normal Saline) 10 ml IVF Q12HR [facility] Last Admin: 02/07/18 10:25 Dose: 10 ml Vitamin E (Vitamin E) 400 units PO DAILY [facility] Last Admin: 02/07/18 10:22 Dose: 400 units
[2018-02-07] MEDS: Carvedilol 25 MG TAB PO SCH (20:43)
[2018-02-07] MEDS: Simvastatin 5 MG TAB PO SCH (20:43)
[2018-02-07] MEDS: Doxycycline 100 MG CAP PO SCH (20:44)
[2018-02-07] MEDS: Insulin Glargine 5 UNITS in Pre-Filled Syringe 1 EACH SC SCH (20:44)
[2018-02-07] MEDS: Cefdinir 300 MG CAP PO SCH (20:44)
[2018-02-07] MEDS ORDERED: Pravastatin Sodium 20 MG TAB PO SCH (21:00)
[2018-02-08 05:44] LABS: Anion Gap 9 mmol/L (10-20); BUN (Urea Nitrogen) 21 mg/dL (8.4-25.7); Calc. Creatinine Clearance 88 mL/min (70-130); Calcium 8.1 mg/dL (7.8-10.44); Carbon Dioxide 27 mmol/L (23-31); Chloride 109 mmol/L (98-107); Estimated GFR-MDRD 45; Glucose 231 mg/dL (80-115); Magnesium 1.7 mg/dL (1.6-2.6); Phosphorus 2.7 mg/dL (2.3-4.7); Potassium 3.1 mmol/L (3.5-5.1); Sodium 142 mmol/L (136-145)
[2018-02-08] MEDS: HumaLOG 300 UNITS/3 ML VIAL SC PRN (06:29)
[2018-02-08] MEDS: Nitroglycerin 2% Ointment 1 INCH/1 GM Packet TOP SCH ×3 (06:31→23:00)
[2018-02-08] MEDS ORDERED: Senokot S 8.6-50 MG TAB PO PRN (08:11)
[2018-02-08] MEDS ORDERED: Eucerin (Mineral Oil/Petrolatum,White) 30 gm Jar TOP PRN (08:11)
[2018-02-08] MEDS ORDERED: Loratadine 10 MG TAB PO PRN (08:11)
[2018-02-08] MEDS ORDERED: Bisacodyl 5 MG TAB PO PRN (08:11)
[2018-02-08] MEDS ORDERED: Artificial Tears 18 DROP/0.9 ML EA EYE PRN (08:11)
[2018-02-08] MEDS ORDERED: Loperamide HCl 2 MG CAP PO PRN (08:11)
[2018-02-08] MEDS ORDERED: Diabetic Tussin 200 MG/10 ML UDCUP PO PRN (08:11)
[2018-02-08] MEDS ORDERED: Sodium Chloride 0.65% Nasal 44 ML BOT EA NARE PRN (08:11)
[2018-02-08] MEDS ORDERED: Acetaminophen 500 MG TAB PO PRN (08:11)
[2018-02-08] MEDS ORDERED: Zolpidem Tartrate 5 MG TAB PO PRN (08:11)
[2018-02-08] MEDS ORDERED: Potassium Chloride 20 MEQ TAB PO SCH ×2 (08:15→14:45)
[2018-02-08] MEDS ORDERED: DHA PO SCH (09:00)
[2018-02-08] MEDS ORDERED: OMEGA PO SCH (09:00)
[2018-02-08] MEDS ORDERED: Non-Formulary Item 1 EACH (Vitamin E [Vitamin E] 400 UNIT) PO SCH (09:00)
[2018-02-08] MEDS ORDERED: FISH OIL PO SCH (09:00)
[2018-02-08] MEDS ORDERED: EPA PO SCH (09:00)
[2018-02-08] MEDS: HumaLOG 300 UNITS/3 ML VIAL SC SCH ×3 (09:34→16:57)
[2018-02-08] MEDS: Insulin Glargine 10 UNITS in Pre-Filled Syringe 1 EACH SC SCH (09:40)
[2018-02-08] MEDS: Fish Oil 1,000 MG CAP PO SCH (09:46)
[2018-02-08] MEDS: Lisinopril 20 MG TAB PO SCH (09:46)
[2018-02-08] MEDS: Furosemide 20 MG TAB PO SCH (09:46)
[2018-02-08] MEDS: Doxycycline 100 MG CAP PO SCH ×2 (09:46→20:33)
[2018-02-08] MEDS: Amlodipine 10 MG TAB PO SCH (09:47)
[2018-02-08] MEDS: Cefdinir 300 MG CAP PO SCH ×2 (09:47→20:33)
[2018-02-08] MEDS: Famotidine 20 MG TAB PO SCH (09:47)
[2018-02-08] MEDS: Carvedilol 25 MG TAB PO SCH ×2 (09:47→20:33)
[2018-02-08] MEDS: Aspirin 81 mg Enteric Coated Tablet PO SCH (09:47)
[2018-02-08] MEDS: Famotidine/PF 20 mg/2ml Vial SLOW IVP SCH (09:48)
[2018-02-08] MEDS: Vitami E (Dl,Tocopheryl Acet) 400 UNITS CAP PO SCH (09:49)
--- NOTE | 2018-02-08 10:57 | PDOC.PN ---
- Subjective Encounter Start Date: 02/08/18 Encounter Start Time: 09:00 -: old records requested/rev Patient seen and examined. No new complaints. No overnight events - Objective Resuscitation Status: Resuscitation Status FULL:Full Resuscitation MAR Reviewed: Yes Vital Signs & Weight: Vital Signs (12 hours) Temp Pulse Resp BP BP Pulse Ox 02/08/18 09:47 68 165/72 H 02/08/18 09:46 160/80 H 02/08/18 08:00 96 02/08/18 07:55 98.1 F 62 19 170/70 H 96 02/08/18 04:22 97.9 F 60 19 167/72 H 96 02/08/18 00:18 97.6 F 57 L 20 141/63 H 94 L Weight Weight 307 lb I&O: 02/07/18 02/08/18 02/09/18 06:59 06:59 06:59 Intake Total 1940 1790 Output Total 1100 600 Balance 840 1190 Result Diagrams: 02/07/18 05:00 02/08/18 03:42 Additional Labs: Accuchecks 02/07/18 02/07/18 02/07/18 20:25 17:24 11:50 POC Glucose 269 H 209 H 343 H Radiology Reviewed by me: Yes EKG Reviewed by me: Yes Phys Exam - Physical Examination Constitutional: NAD HEENT: PERRLA, moist MMs, sclera anicteric Neck: no JVD, supple Respiratory: no wheezing, no rales, no rhonchi Cardiovascular: RRR, no significant murmur, no rub Gastrointestinal: soft, non-tender, no distention, positive bowel sounds Musculoskeletal: no edema, pulses present Neurological: non-focal, normal sensation Lymphatic: no nodes Psychiatric: normal affect, A&O x 3 Skin: no rash, normal turgor Dx/Plan (1) Hyperglycemia due to type 2 diabetes mellitus Code(s): E11.65 - TYPE 2 DIABETES MELLITUS WITH HYPERGLYCEMIA Status: Acute (2) Hyperglycemic hyperosmolar nonketotic coma Code(s): E11.01 - TYPE 2 DIABETES MELLITUS WITH HYPEROSMOLARITY WITH COMA; E11.65 - TYPE 2 DIABETES MELLITUS WITH HYPERGLYCEMIA Status: Acute Comment: Improved, now on subcutaneous insulin. (3) Type 2 diabetes mellitus Status: Acute (4) Hypertension Code(s): I10 - ESSENTIAL (PRIMARY) HYPERTENSION Status: Chronic Comment: (5) Hypokalemia Code(s): E87.6 - HYPOKALEMIA Status: Chronic Comment: (6) Pilonidal cyst Code(s): L05.91 - PILONIDAL CYST WITHOUT ABSCESS Status: Chronic Comment: - Plan cont current plan of care, plan discussed w/ family * his blood sugar has not controlled, he will need another day to adjust his insulin dose * will transfer to medical floor * today I have increased insulin dose * medication reviewed as below * symptomatic treatment * discussed with . Review of Systems - Review of Systems ENT: negative: Ear Pain, Ear Discharge, Nose Pain, Nose Discharge, Nose Congestion, Mouth Pain, Mouth Swelling, Throat Pain, Throat Swelling, Other Respiratory: negative: Cough, Dry, Shortness of Breath, Hemoptysis, SOB with Excertion, Pleuritic Pain, Sputum, Wheezing Cardiovascular: negative: chest pain, palpitations, orthopnea, paroxysmal nocturnal dyspnea, edema, light headedness, other Gastrointestinal: negative: Nausea, Vomiting, Abdominal Pain, Diarrhea, Constipation, Melena, Hematochezia, Other Genitourinary: negative: Dysuria, Frequency, Incontinence, Hematuria, Retention , Other Musculoskeletal: negative: Neck Pain, Shoulder Pain, Arm Pain, Back Pain, Hand Pain, Leg Pain, Foot Pain, Other Skin: negative: Rash, Lesions, Vikas, Bruising, Other - Medications/Allergies Allergies/Adverse Reactions: Allergies Allergy/AdvReac Type Severity Reaction Status Date / Time No Known Allergies Allergy Verified 02/06/18 17:04 Medications: Current Medications Acetaminophen (Tylenol) 500 mg PO Q6H PRN PRN Reason: Mild Pain (1-3) Amlodipine Besylate (Norvasc) 10 mg PO DAILY [facility] Last Admin: 02/08/18 09:47 Dose: 10 mg Artificial Tears (Tears Naturale) 2 drop EA EYE PRN PRN PRN Reason: Dry Eyes Aspirin (Ecotrin) 81 mg PO DAILY [facility] Last Admin: 02/08/18 09:47 Dose: 81 mg Bisacodyl (Dulcolax) 10 mg PO DAILYPRN PRN PRN Reason: Constipation Carvedilol (Coreg) 25 mg PO BID [facility] Last Admin: 02/08/18 09:47 Dose: 25 mg Cefdinir (Omnicef) 300 mg PO BID [facility] Last Admin: 02/08/18 09:47 Dose: 300 mg Dextrose/Water (Dextrose 50%) 25 gm SLOW IVP PRN PRN PRN Reason: Hypoglycemia Doxycycline Hyclate (Vibramycin) 100 mg PO BID [facility] Last Admin: 02/08/18 09:46 Dose: 100 mg Famotidine (Pepcid) 20 mg SLOW IVP Q12HR [facility] Last Admin: 02/08/18 09:48 Dose: Not Given Famotidine (Pepcid) 20 mg PO BID [facility] Last Admin: 02/08/18 09:47 Dose: 20 mg Fish Oil (Fish Oil) 1,000 mg PO DAILY [facility] Last Admin: 02/08/18 09:46 Dose: 1,000 mg Furosemide (Lasix) 20 mg PO DAILY [facility] Last Admin: 02/08/18 09:46 Dose: 20 mg Glucagon (Glucagon) 1 mg IM PRN PRN PRN Reason: Hypoglycemia Guaifenesin (Robitussin Sf) 200 mg PO Q4H PRN PRN Reason: Cough Hydralazine HCl (Apresoline) 10 mg SLOW IVP Q4H PRN PRN Reason: Hypertension Last Admin: 02/07/18 02:27 Dose: 10 mg Dextrose/Sodium Chloride (D5 1/2 Ns) 1,000 mls @ 250 mls/hr IV .Q4H PRN; Protocol PRN Reason: Step 4 of DKA Protocol Potassium Chloride/Dextrose/Sod Cl (D5 1/2 Ns W/20 Meq Kcl) 1,000 mls @ 250 mls /hr IV .Q4H PRN; Protocol PRN Reason: Step 4 of DKA Protocol Last Admin: 02/07/18 10:22 Dose: 1,000 mls Dextrose/Water (D5w) 1,000 mls @ 0 mls/hr IV .Q0M PRN PRN Reason: Hypoglycemia Insulin Glargine 10 units/ (Miscellaneous Medication) 0.1 mls @ 0 mls/hr SC HS [facility] Insulin Glargine 10 units/ (Miscellaneous Medication) 0.1 mls @ 0 mls/hr SC QAM [facility] Last Admin: 02/08/18 09:40 Dose: 0.1 mls Insulin Human Lispro (Humalog) 0 units SC .MILD SLIDING SCALE PRN PRN Reason: Mild Correctional Scale Last Admin: 02/08/18 06:29 Dose: 4 unit Insulin Human Lispro (Humalog) 0 units SC .BEDTIME SLIDING SC PRN PRN Reason: Bedtime Correctional Scale Last Admin: 02/06/18 21:16 Dose: 5 unit Insulin Human Lispro (Humalog) 10 units SC TID-WM [facility] Last Admin: 02/08/18 09:34 Dose: 10 unit Lisinopril (Zestril) 20 mg PO DAILY [facility] Last Admin: 02/08/18 09:46 Dose: 20 mg Loperamide HCl (Imodium) 2 mg PO PRN PRN PRN Reason: Diarrhea/Loose Stools Loratadine (Claritin) 10 mg PO DAILYPRN PRN PRN Reason: Sinus Symptoms Mineral Oil/White Petrolatum (Eucerin Cream) 0 gm TOP BIDPRN PRN PRN Reason: Dry Skin Nitroglycerin (Nitro-Bid 2% Ointment) 0.5 inch TOP Q8HR [facility] Last Admin: 02/08/18 06:31 Dose: Not Given Ondansetron HCl (Zofran Odt) 4 mg PO Q6H PRN PRN Reason: Nausea/Vomiting Ondansetron HCl (Zofran) 4 mg IVP Q6H PRN PRN Reason: Nausea/Vomiting Senna/Docusate Sodium (Senokot S) 2 tab PO BIDPRN PRN PRN Reason: Constipation Simvastatin (Zocor) 10 mg PO HS [facility] Last Admin: 02/07/18 20:43 Dose: 10 mg Sodium Chloride (Flush - Normal Saline) 10 ml IVF Q12HR [facility] Last Admin: 02/08/18 09:49 Dose: Not Given Sodium Chloride (Madeline Nasal Crane 0.65%) 0 ml EA NARE QIDPRN PRN PRN Reason: Nasal Congestion Vitamin E (Vitamin E) 400 units PO DAILY [facility] Last Admin: 02/08/18 09:49 Dose: 400 units Zolpidem Tartrate (Ambien) 5 mg PO HSPRN PRN PRN Reason: Insomnia
--- NOTE | 2018-02-08 11:31 | PQF ---
DATE: 02-08-18 ATTN: DR. JOSS STEVE Please exercise your independent, professional judgment in responding to the clarification form. Clinical indicators are provided on the bottom of this form for your review Please check appropriate box(s): [ ] Acute Renal Failure (ARF) / Acute Kidney Injury (JACOB) [ x ] Acute on Chronic Renal Failure please specify Stage of CKD _3 (see below) [ ] Other diagnosis [ ] Unable to determine In addition, please specify: Present on Admission (POA): [ ] Yes [ ] No [ ] Unable to determine National Kidney Foundation Guidelines for CKD Staging Stage I Kidney damage with normal or increased GFR GFR > 90 Stage II Kidney damage with mildly decreased GFR GFR 60-89 Stage III Kidney damage with moderately decreased GFR GFR 30-59 Stage IV Kidney damage with severely decreased GFR GFR 16-29 Stage V Kidney failure GFR<15 ESRD End Stage Renal Disease On dialysis Acute Renal Failure/Acute Kidney Failure defined as: Increases in SCr by (>) 0.3 mg/dl within 48 hours OR- Increases in SCr by (>) 1.5 times baseline, known or presumed to have occurred within the prior 7 days OR- Urine volume < 0.5 ml/kg/hour for 6 hours (KDIGO supplement 2012 for RIFLE/WILLOW criteria) For continuity of documentation, please document condition throughout progress notes and discharge summary. Thank You. CLINICAL INDICATORS - SIGNS / SYMPTOMS / LABS GFR: 1018: 31, 31 10-18: 31, 33, 35, 40, 43 10-18: 48 1018: 45 CREATININE: 18: 2.15, 2.11 1018: 2.10, 2.03, 1.90, 1.72, 1.61 1024-18: 1.46 10-18: 1.53 BUN: 18: 25, 25 10-18: 24, 23 1018: 21 H&P: ACUTE ON CHRONIC KIDNEY DISEASE. CONSULT NOTE DR. [id number]: DECREASED ENERGY, POLYURIA, AND URINARY INCONTINENCE, FOUND TO HAVE NEW ONSET OF DM 2, ORDERED UA TO R/O UTI RISK FACTORS: CONSULT NOTE DR. [id number]: DECREASED ENERGY, POLYURIA, AND URINARY INCONTINENCE, FOUND TO HAVE NEW ONSET OF DM 2 TREATMENTS: MAR: 02-05-18: NS IVF H&P: WE HAVE ON IV HYDRATION. WE WILL MONITOR PT'S CREATININE. (This form is maintained as a part of the permanent medical record) 2014 [employer] All Rights Reserved ELIN [email or web address] Office: [phone] [facility] HOSPITALDavid
[2018-02-08] MEDS: NS 0.9% w/ 20 MEQ KCL 1,000 ML IV SCH (12:16)
[2018-02-08] MEDS ORDERED: Magnesium 2 GM/50 ML 2 GM in Premix Bag 1 BAG IVPB SCH (14:45)
[2018-02-08] MEDS ORDERED: Magnesium Sulfate 2 GM in Sodium Chloride 0.9% 100 ML IVPB SCH (14:45)
--- NOTE | 2018-02-08 15:17 | PRG ---
DATE OF SERVICE: 02/08/2018 SERVICE: Pulmonary Medicine. INTERVAL HISTORY: The patient is doing fine from a respiratory standpoint. His sacral discomfort guajardo s improved a little bit. He denies any current chest pain, fevers or chills. Otherwise, there has b een no interval change to his conditions. PHYSICAL EXAMINATION: VITAL SIGNS: Afebrile, pulse 62, blood pressure 121/49, respirations 15, saturation 97% on room air. GENERAL: The patient is awake and alert, in no apparent distress. LUNGS: There is good air entry bilaterally with no prolonged expiratory phase or wheezing present. HEART: Normal rate and regular. ABDOMEN: Soft, nontender, nondistended. Bowel sounds are positive. MUSCULOSKELETAL: No cyanosis or clubbing. There is no pitting in the bilateral lower extremities. NEUROLOGIC: Grossly nonfocal. LABORATORY DATA: Sodium 142, potassium 3.1, creatinine 1.53 and roughly stable, BUN 21. Magnesium a nd phosphorus fall within the normal limits. Blood sugar ranges from 209-347. Urinalysis is only si gnificant for glycosuria. ASSESSMENT: 1. Type 2 diabetes mellitus, new diagnosis. 2. Pilonidal cyst. 3. Cellulitis. DISCUSSION AND PLAN: The patient will require 2 weeks of antibiotics. At this point, he is stable f or transition out of the hospital. Oral antihyperglycemic medication should be considered. Potassiu m and magnesium to be replaced today. At this point, when he leaves the ICU, he will have no further requirements for inpatient Pulmonary or Critical Care opinion and I will sign off. Please call with additional questions or concerns moving forward.
[2018-02-08] MEDS ORDERED: Magnesium Oxide 400 MG TAB PO SCH (16:15)
[2018-02-08] MEDS: Simvastatin 5 MG TAB PO SCH (20:33)
[2018-02-08] MEDS ORDERED: Insulin Glargine 10 UNITS in Pre-Filled Syringe 1 EACH SC SCH (21:00)
[2018-02-09] MEDS: Nitroglycerin 2% Ointment 1 INCH/1 GM Packet TOP SCH ×2 (05:25→13:42)
[2018-02-09 06:24] LABS: Anion Gap 11 mmol/L (10-20); BUN (Urea Nitrogen) 21 mg/dL (8.4-25.7); Calc. Creatinine Clearance 96 mL/min (70-130); Calcium 8.3 mg/dL (7.8-10.44); Carbon Dioxide 23 mmol/L (23-31); Chloride 110 mmol/L (98-107); Estimated GFR-MDRD 50; Glucose 147 mg/dL (80-115); Potassium 3.5 mmol/L (3.5-5.1); Sodium 140 mmol/L (136-145)
[2018-02-09] MEDS ORDERED: Magnesium Oxide 400 MG TAB PO SCH (09:00)
[2018-02-09] MEDS: Insulin Glargine 10 UNITS in Pre-Filled Syringe 1 EACH SC SCH (09:02)
[2018-02-09] MEDS: Carvedilol 25 MG TAB PO SCH (09:03)
[2018-02-09] MEDS: Doxycycline 100 MG CAP PO SCH (09:03)
[2018-02-09] MEDS: Vitami E (Dl,Tocopheryl Acet) 400 UNITS CAP PO SCH (09:04)
[2018-02-09] MEDS: Lisinopril 20 MG TAB PO SCH (09:04)
[2018-02-09] MEDS: Aspirin 81 mg Enteric Coated Tablet PO SCH (09:05)
[2018-02-09] MEDS: Cefdinir 300 MG CAP PO SCH (09:06)
[2018-02-09] MEDS: Amlodipine 10 MG TAB PO SCH (09:06)
[2018-02-09] MEDS: Fish Oil 1,000 MG CAP PO SCH (09:06)
[2018-02-09] MEDS: Furosemide 20 MG TAB PO SCH (09:07)
[2018-02-09] MEDS: HumaLOG 300 UNITS/3 ML VIAL SC SCH ×2 (09:09→11:28)
--- NOTE | 2018-02-09 11:31 | DIS ---
PRIMARY CARE PHYSICIAN: Dr. Shelton Browne. DATE OF ADMISSION: 02/05/2018 DATE OF DISCHARGE: 02/09/2018 DISCHARGE DISPOSITION: Home. PRIMARY DISCHARGE DIAGNOSES: 1. Hyperglycemia associated with diabetes type 2. 2. Hyperglycemic hyperosmolar nonketotic state. 3. Pilonidal cyst. 4. Abnormal electrolytes, corrected while in hospital. 5. Acute on chronic kidney failure, baseline chronic kidney disease stage 3. SECONDARY DISCHARGE DIAGNOSES: Diabetes type 2, hypertension, morbid obesity, dyslipidemia. PRIMARY PROCEDURE/OPERATION: None. RADIOLOGICAL INVESTIGATION: Chest x-ray on admission showed no acute cardiopulmonary process. Soft tissue ultrasound showed pilonidal cyst. SIGNIFICANT LABORATORY DATA: WBC 5.2, hemoglobin 10.6, platelet 182. Sodium 140, potassium 3.5, BUN 21, creatinine 1.41, calcium 8.3. Urinalysis: Glucosuria. DISCHARGE MEDICATIONS: Amlodipine 10 mg p.o. daily, aspirin 81 mg p.o. daily, Coreg 25 mg p.o. b.i.d ., Lasix 20 mg p.o. daily, Prinzide 20/25 one tablet p.o. daily, fish oil 1 capsule p.o. daily, prava statin 20 mg p.o. at bedtime, vitamin E 400 units p.o. daily, Lantus insulin 10 units subcutaneously b.i.d. and Humalog insulin 10 units subcu t.i.d., Omnicef 300 mg p.o. b.i.d. for 5 days, doxycycline 100 mg p.o. b.i.d. for 5 days. CONTRAINDICATIONS: None. CODE STATUS: FULL CODE. INPATIENT CONSULTANTS: Dr. Scanlon was following because patient was initially admitted in [facility]. Dr Alia Carranza was consulted for pilonidal cyst. TEST RESULTS PENDING ON DISCHARGE: None. ALLERGIES: No known drug allergy. DISCHARGE PLAN: Post hospital, the patient will follow up with primary care physician in 1 week. HOSPITAL COURSE: A 72-year-old male with above-mentioned medical problem who was admitted by Dr. Hitesh dent on 02/06/2018. Please see his H&P for further detail. The patient presented to the hospital wi th generalized weakness. Patient was found with hyperglycemia. He was also found with hyperglycemic hyperosmolar nonketotic state. He also had acute on chronic kidney failure. He was dehydrated. Th e patient was admitted to [facility]. He was treated with insulin drip. Subsequently, upon stabilization and improvement in blood sugar, the patient was changed to sliding scale insulin. We started long-ac ting insulin as well as short-acting insulin with that patient's blood sugar was gradually improving. Patient also had acute on chronic kidney failure that was improved with IV fluid hydration. Upon s tabilization, this patient was transferred to medical floor. While in [facility]. Pulmonary group was fol lowing while in hospital. With this medication, the patient's diabetes is now well controlled. He will continue all his previo us medication. While in hospital, we also corrected his abnormal electrolytes with replacement. Whsiva allen in hospital, we provided patient education about diabetes, diabetic diet, insulin technique. All new medication prescribed above helped with the social work to make sure that he is having those medi cations. The patient is seen and examined at bedside today. Review of systems reviewed with him and negative. Necessary patient education about diabetes, diabet ic diet and medication compliance given to him. PHYSICAL EXAMINATION: VITAL SIGNS: Currently, temperature 97.9, pulse 65, respiratory rate 20, saturation 94%, blood press ure 153/78, weight 307 pounds. GENERAL: The patient is currently alert, awake, in no obvious acute distress. HEAD: Normocephalic, atraumatic. EYES: Pupils round, reactive to light. Extraocular muscle intact. ENT: Oropharynx within normal limits. Moist mucous membrane, no oral lesion, no pharyngeal erythema , no exudate. NECK: Supple, no JVD, no thyromegaly, no carotid bruit. No jugular venous distention. LUNGS: Clear to auscultation without any rhonchi or rales. CARDIAC: S1, S2 regular without any significant murmur. ABDOMEN: Soft and benign without any tenderness. EXTREMITIES: No edema. NEUROLOGIC: Grossly nonfocal examination. All new medication prescriptions were given return. Total time spent on discharge day 32 minutes.
[2018-02-09 16:20] VITALS: TEMP 98.1
[2018-02-09 16:29] VITALS: BP 156/81
== END 2018-02-09 16:38 | disposition home or self-care (01) | DRG 638 ==
LOC: ERS 20:19 → ERHOLD 23:09 → IMCU/EMU 02-06 14:05 → T4-A 02-08 21:02
PROVIDERS: ADMIT Internal Medicine; ATTEND Internal Medicine
DX: E11.00 Type 2 diabetes mellitus with hyperosmolarity without nonketotic hyperglycemic-hyperosmolar coma (NKHHC) (principal); N17.9 Acute kidney failure, unspecified; N18.3 Chronic kidney disease, stage 3 (moderate); I12.9 Hypertensive chronic kidney disease with stage 1 through stage 4 chronic kidney disease, or unspecified chronic kidney disease; E87.6 Hypokalemia; E66.9 Obesity, unspecified; L05.91 Pilonidal cyst without abscess; Z68.38 Body mass index [BMI] 38.0-38.9, adult; Z85.46 Personal history of malignant neoplasm of prostate; Z79.899 Other long term (current) drug therapy; Z79.82 Long term (current) use of aspirin; E86.0 Dehydration; R32 Unspecified urinary incontinence; G47.33 Obstructive sleep apnea (adult) (pediatric)
CPT/HCPCS: 36415; 36416; 71046; 76999; 80048; 81003; 82805; 83036; 83735; 83930; 84100; 85025; 96365; 96366; 96367; 96368; J0360; J1815; J3480; J7050; S0028